=== PATIENT | male | born 1970 | race Two or more races ===

== ENCOUNTER 2020-01-20 11:20 | Emergency (ER) | payer OTHER ==
[2020-01-20 11:28] VITALS: BP 127/80; PULSE 103; TEMP 98.3; BMI 22.8
--- NOTE | 2020-01-20 11:34 | PDOC ---
Rapid Medical Evaluation Chief Complaint: Laceration Time Seen by Provider: 01/20/20 11:27 Medical Evaluation: Allergies Allergy/AdvReac Type Severity Reaction Status Date / Time No Known Allergies Allergy Verified 01/20/20 11:24 01/20/20 11:28 I have performed a brief in-person evaluation of this patient. The patient presents with a chief complaint of:fell against wall at work this am. Needs tetanus Pertinent physical exam findings:multiple lac to RUE I have ordered the following:boostrix The patient will proceed to the ED for further evaluation. Discharge Disposition - Diagnosis Laceration - Referrals - Patient Instructions - Post Discharge Activity
[2020-01-20] MEDS ORDERED: DIPHTH,PERTUSS(ACELL),TET 0.5 ML DISP.SYRIN IM ONE (11:36)
--- NOTE | 2020-01-20 11:49 | PDOC ---
History of Present Illness - General Chief Complaint: Laceration Stated Complaint: RT ARM INJURY/LACERATION Time Seen by Provider: 01/20/20 11:27 - History of Present Illness Initial Comments: 01/20/20 11:47 49-year-old male with a past medical history of hypertension presents for evaluation of a laceration on the posterior aspect of his left forearm. He is not current on tetanus. He states laceration occurred at home while working the piece of the metal edge of a wall was sticking out which lacerated him. Past History - Medical History Allergies/Adverse Reactions: Allergies Allergy/AdvReac Type Severity Reaction Status Date / Time No Known Allergies Allergy Verified 01/20/20 11:24 COPD: No HTN: Yes - Immunization History Immunization Up to Date: No - Psycho-Social/Smoking History Smoking History: Never smoked - Substance Abuse Hx (Audit-C & DAST Scrn) How often the patient has a drink containing alcohol: Never Score: In Men: 4 or > Positive; In Women: 3 or > Positive: 0 Screen Result (Pos requires Nsg. Audit-10AR): Negative In the last yr the pt used illegal drug/Rx for NonMed reason: No Score: Yes response is considered Positive: 0 Screen Result (Positive result requires Nsg. DAST-10): Negative Review of Systems - Review of Systems Musculoskeletal: Yes: See HPI *Physical Exam - Vital Signs Last Vital Signs Temp Pulse Resp BP Pulse Ox 98.3 F 103 H 20 127/80 100 01/20/20 11:27 01/20/20 11:27 01/20/20 11:27 01/20/20 11:27 01/20/20 11:27 - Physical Exam 01/20/20 11:47 Right forearm skin color and temperature normal range of motion of the elbow wrist hands and fingers are full and nonpainful. There is a approximately 3 cm to 4 cm linear Vertically oriented laceration on the posterior aspect of the left forearm about the proximal third. Subcutaneous fat is exposed. No gross sensorimotor deficits upper extremity compartments are soft and nontender neurovascular intact. Medical Decision Making - Medical Decision Making 01/20/20 11:48 The wound was anesthetized with 1% lidocaine without epinephrine. Explored to its base in a bloodless field without any identification of foreign body. Copiously irrigated with normal saline. Edges approximated using 3-0 nylon 5 sutures in a simple interrupted fashion . Dry sterile dressing was placed. Discharge - Discharge Information Problems reviewed: Yes Clinical Impression/Diagnosis: Laceration Condition: Stable Disposition: HOME - Admission No - Follow up/Referral Referrals: Dre Zuñiga MD [Staff Physician] - - Patient Discharge Instructions Additional Instructions: Please keep the dressing on for the next 48 hours. After 48 hours you may remove the dressing wash the area with soap and water and leave it open to air. If you must work please cover the area with a dry sterile dressing such as a large Band-Aid. Keep the area open to air as much as possible. Return to the emergency room for any worsening symptoms or concern for infection such as redness, swelling, increasing pain, or drainage. Other than that sutures out in days Tylenol and Motrin as directed for pain. - Post Discharge Activity
== END 2020-01-20 12:17 | disposition home or self-care (01) ==
LOC: JERFT 11:20
PROC: 3E0234Z Introduction of Serum, Toxoid and Vaccine into Muscle, Percutaneous Approach (ICD-10-PCS; principal; 2020-01-20)
PROC: 0HQEXZZ Repair Left Lower Arm Skin, External Approach (ICD-10-PCS; principal; 2020-01-20)
DX: S51.812A Laceration without foreign body of left forearm, initial encounter (principal); W26.8XXA Contact with other sharp object(s), not elsewhere classified, initial encounter
CPT/HCPCS: 90715; 99282-25